=== PATIENT | male | born 1970 | race Caucasian/White ===

== ENCOUNTER 2019-12-30 10:28 | Inpatient (IN) | payer MEDICARE, MEDICAID ==
[~2019-12-30] VITALS: Ht 167.6 cm; Wt 60.3 kg
[2019-12-30 11:09] LABS: EOSINOPHILS % (AUTO) 3.7 % (1.0-6.0); HEMATOCRIT 41.3 % (41-53); HEMOGLOBIN 13.7 g/dL (13.5-17.5); LYMPHOCYTES # (AUTO) 1.9 K/uL (1.0-4.8); LYMPHOCYTES % (AUTO) 26.8 % (22.0-44.0); MEAN CORPUSCULAR HGB CONC 33.2 G/dL (31.0-37.0); MEAN CORPUSCULAR VOLUME 87 fL (80-100); MONOCYTES # (AUTO) 0.6 K/uL (0.1-1.0); NEUTROPHILS # (AUTO) 4.2 K/uL (1.8-7.7); NEUTROPHILS % (AUTO) 60.5 % (40.0-70.0); PLATELET COUNT (AUTO) 370 K/uL (150-450); RED BLOOD CELL COUNT(AUTO) 4.73 MIL/uL (4.50-5.90); RED CELL DISTRIBUTION WIDTH 14.4 % (11.5-14.5)
[2019-12-30 11:40] LABS: ANION GAP 4 mmol/L (8-16); CALCIUM, TOTAL 9.1 mg/dL (8.8-10.5); CARBON DIOXIDE 33 mmol/L (22-29); CHLORIDE 104 mmol/L (98-107); GLOMERULAR FILTR. RATE CALC > 60 mL/min (>60); GLUCOSE,RANDOM 88 mg/dL (70-110); POTASSIUM 5.4 mmol/L (3.5-5.1); SODIUM SERUM 141 mmol/L (136-145); UREA NITROGEN, BLOOD 16 mg/dL (7-18)
[2019-12-30 11:44] LABS: ALANINE AMINOTRANSFERASE 25 U/L (12-78); ALBUMIN 3.9 g/dL (3.4-5.0); ALKALINE PHOSPHATASE 91 U/L (46-116); ASPARTATE AMINOTRANSFERASE 21 U/L (15-37)
[2019-12-30 11:51] LABS: AMPHET/METH SCREEN,URINE POSITIVE (NEGATIVE); BARBITURATE SCREEN, URINE NEGATIVE (NEGATIVE); BENZODIAZEPINES SCREEN,URINE NEGATIVE (NEGATIVE); CANNABINOID SCREEN,URINE NEGATIVE (NEGATIVE); COCAINE SCREEN,URINE NEGATIVE (NEGATIVE); METHADONE SCREEN, URINE NEGATIVE (NEGATIVE); OPIATE SCREEN,URINE NEGATIVE (NEGATIVE)
[2019-12-30 11:53] LABS: PHENCYCLIDINE SCREEN,URINE NEGATIVE (NEGATIVE)
[2019-12-30] MEDS ORDERED: HALOPERIDOL 5 MG TABLET PO PRN (13:15)
[2019-12-30 15:07] VITALS: BP 107/59
[2019-12-30 16:23] VITALS: BP 150/80
[2019-12-30] MEDS ORDERED: NICOTINE 21 MG/24 HOUR PATCH TD PRN (16:30)
[2019-12-30] MEDS ORDERED: SODIUM POLYSTYRENE SULFONATE 15 GM/60 ML SUSPENSION BOTTLE PO ONE (17:30)
[2019-12-30] MEDS: LORazepam 2 MG TABLET PO PRN (17:46)
[2019-12-30] MEDS: ZOLPIDEM TARTRATE 10 MG TABLET PO PRN (21:33)
[2019-12-31 08:00] VITALS: BP 110/62
[2019-12-31 08:15] LABS: FREE T4 (FREE THYROXINE) 1.02 ng/dL (0.76-1.46); POTASSIUM 4.6 mmol/L (3.5-5.1); THYROID STIMULATING HORMONE 0.71 uIU/mL (0.36-3.74)
[2019-12-31] MEDS ORDERED: LOPERAMIDE HCL 2 MG CAPSULE PO PRN (08:15)
[2019-12-31] MEDS ORDERED: MAG HYDROX/AL HYDROX/SIMETH ES 30 ML SUSPENSION UDCUP PO PRN (08:15)
[2019-12-31] MEDS ORDERED: PETROLATUM,WHITE 28 GM JELLY TP PRN (08:15)
[2019-12-31] MEDS ORDERED: OMEPRAZOLE 20 MG CAPSULE PO PRN (08:15)
[2019-12-31] MEDS ORDERED: ALBUTEROL SULFATE HFA 90 MCG/PUFF 8 GM INHALER IH PRN (08:15)
[2019-12-31] MEDS ORDERED: ACETAMINOPHEN 325 MG TABLET PO PRN (08:15)
[2019-12-31] MEDS ORDERED: DOCUSATE SODIUM 100 MG CAPSULE PO PRN (08:15)
[2019-12-31] MEDS ORDERED: IBUPROFEN 600 MG TABLET PO PRN (08:15)
[2019-12-31] MEDS ORDERED: MAGNESIUM HYDROXIDE SUSPENSION 30 ML UDCUP PO PRN (08:15)
[2019-12-31] MEDS ORDERED: CloNIDine HCL 0.1 MG TABLET PO PRN (08:15)
[2019-12-31] MEDS ORDERED: BENZOCAINE/MENTHOL LOZENGE MM PRN (08:15)
[2019-12-31] MEDS ORDERED: ONDANSETRON HCL 4 MG TABLET PO PRN (08:15)
[2019-12-31] MEDS: ARIPiprazole 5 MG TABLET PO SCH (09:08)
[2019-12-31] MEDS: ESCITALOPRAM OXALATE 10 MG TABLET PO SCH (09:10)
[2019-12-31] MEDS: LORazepam 2 MG TABLET PO PRN ×2 (09:12→17:16)
[2019-12-31 17:27] VITALS: BP 115/72
[2020-01-01 01:35] VITALS: BP 115/69
[2020-01-01] MEDS: LORazepam 2 MG TABLET PO PRN ×2 (01:40→16:45)
[2020-01-01] MEDS: ZOLPIDEM TARTRATE 10 MG TABLET PO PRN (01:40)
[2020-01-01 08:00] VITALS: BP 112/75
[2020-01-01] MEDS: ARIPiprazole 5 MG TABLET PO SCH (08:01)
[2020-01-01] MEDS: ESCITALOPRAM OXALATE 10 MG TABLET PO SCH (08:01)
[2020-01-01 16:49] VITALS: BP 117/71
[2020-01-02 07:05] LABS: PHOSPHORUS 3.5 mg/dL (2.5-4.9)
[2020-01-02] MEDS: LORazepam 2 MG TABLET PO PRN ×2 (08:37→14:39)
[2020-01-02 08:38] VITALS: BP 109/70
[2020-01-02] MEDS: NICOTINE 21 MG/24 HOUR PATCH TD PRN (08:38)
[2020-01-02] MEDS ORDERED: ESCITALOPRAM OXALATE 10 MG TABLET PO SCH (09:00)
[2020-01-02] MEDS ORDERED: ARIPiprazole 5 MG TABLET PO SCH (09:00)
[2020-01-02 16:36] VITALS: BP 121/66
[2020-01-02] MEDS: OLANZapine 5 MG RAPDIS TABLET PO SCH (21:18)
[2020-01-03 06:10] VITALS: BP 103/64
[2020-01-03 08:00] VITALS: BP 92/61
[2020-01-03] MEDS ORDERED: FLUoxetine HCL 20 MG CAPSULE PO SCH (09:00)
[2020-01-03] MEDS: NALTREXONE HCL 50 MG TABLET PO SCH (09:13)
[2020-01-03 16:00] VITALS: BP 112/68
[2020-01-03] MEDS: LORazepam 2 MG TABLET PO PRN (16:05)
[2020-01-03] MEDS: OLANZapine 5 MG RAPDIS TABLET PO SCH (20:09)
[2020-01-03 20:35] LABS: GLUCOMETER DEV NAME(LOC) 3EX.; GLUCOSE,POINT OF CARE 231 MG/DL (70-110)
[2020-01-04 08:00] VITALS: BP 129/65
[2020-01-04] MEDS: NALTREXONE HCL 50 MG TABLET PO SCH (08:33)
[2020-01-04] MEDS: BuPROPion HCL XL 150 MG ER TABLET PO SCH (08:33)
[2020-01-04] MEDS: ATOMOXETINE HCL 40 MG CAPSULE PO SCH (08:33)
[2020-01-04] MEDS ORDERED: ATOMOXETINE HCL 25 MG CAPSULE PO SCH (09:00)
[2020-01-04 16:40] VITALS: BP 127/75
[2020-01-04] MEDS: LORazepam 2 MG TABLET PO PRN (17:44)
[2020-01-04] MEDS: OLANZapine 10 MG RAPDIS TABLET PO SCH (20:20)
[2020-01-05] MEDS: BuPROPion HCL XL 150 MG ER TABLET PO SCH (08:25)
[2020-01-05] MEDS: ATOMOXETINE HCL 40 MG CAPSULE PO SCH (08:26)
[2020-01-05] MEDS: NALTREXONE HCL 50 MG TABLET PO SCH (08:26)
[2020-01-05 08:52] VITALS: BP 102/50
[2020-01-05 09:35] VITALS: BP 117/67
[2020-01-05] MEDS: LORazepam 2 MG TABLET PO PRN ×2 (09:37→16:40)
[2020-01-05] MEDS: NICOTINE 21 MG/24 HOUR PATCH TD PRN (09:42)
[2020-01-05 16:00] VITALS: BP 109/73
[2020-01-05 16:38] VITALS: BP 111/69
[2020-01-05 17:38] VITALS: BP 119/68
[2020-01-05 18:38] VITALS: BP 119/68
[2020-01-05] MEDS: OLANZapine 10 MG RAPDIS TABLET PO SCH (20:08)
[2020-01-06 08:36] VITALS: BP 105/65
[2020-01-06 08:42] VITALS: BP 126/62
[2020-01-06] MEDS: LORazepam 2 MG TABLET PO PRN ×2 (08:44→18:54)
[2020-01-06] MEDS: NALTREXONE HCL 50 MG TABLET PO SCH (08:45)
[2020-01-06] MEDS: ATOMOXETINE HCL 40 MG CAPSULE PO SCH (08:45)
[2020-01-06] MEDS: BuPROPion HCL XL 150 MG ER TABLET PO SCH (08:45)
[2020-01-06] MEDS: OLANZapine 5 MG RAPDIS TABLET PO PRN (11:18)
[2020-01-06 16:00] VITALS: BP 108/73
[2020-01-06] MEDS: OLANZapine 10 MG RAPDIS TABLET PO SCH (20:13)
[2020-01-06] MEDS ORDERED: INSULIN LISPRO 100 UNITS/ML SQ PRN (21:00)
[2020-01-06] MEDS ORDERED: DEXTROSE 50%-WATER 25 GM/50 ML SYRINGE IVP PRN (21:00)
[2020-01-07 06:49] LABS: GLUCOMETER DEV NAME(LOC) 3E.I 2; GLUCOSE,POINT OF CARE 88 MG/DL (70-110)
[2020-01-07 07:12] LABS: HEMATOCRIT 37.2 % (41-53); HEMOGLOBIN 12.3 g/dL (13.5-17.5); MEAN CORPUSCULAR HEMOGLOBIN 29.1 pg (26.0-34.0); MEAN CORPUSCULAR VOLUME 88 fL (80-100); PLATELET COUNT (AUTO) 365 K/uL (150-450); RED BLOOD CELL COUNT(AUTO) 4.23 MIL/uL (4.50-5.90); RED CELL DISTRIBUTION WIDTH 14.8 % (11.5-14.5)
[2020-01-07 07:30] LABS: ANION GAP 3 mmol/L (8-16); CARBON DIOXIDE 35 mmol/L (22-29); CHLORIDE 105 mmol/L (98-107); CREATININE 0.92 mg/dL (0.60-1.30); GLOMERULAR FILTR. RATE CALC > 60 mL/min (>60); GLUCOSE,RANDOM 87 mg/dL (70-110); PHOSPHORUS 4.6 mg/dL (2.5-4.9); POTASSIUM 5.4 mmol/L (3.5-5.1); SODIUM SERUM 143 mmol/L (136-145); UREA NITROGEN, BLOOD 24 mg/dL (7-18)
[2020-01-07 07:40] LABS: HEMOGLOBIN A1C 5.5 % (3.8-5.6)
[2020-01-07] MEDS: NALTREXONE HCL 50 MG TABLET PO SCH (08:57)
[2020-01-07] MEDS: BuPROPion HCL XL 150 MG ER TABLET PO SCH (08:57)
[2020-01-07] MEDS ORDERED: ATOMOXETINE HCL 40 MG CAPSULE PO SCH (09:00)
[2020-01-07] MEDS ORDERED: ATOMOXETINE HCL 10 MG CAPSULE PO SCH (09:00)
[2020-01-07 09:23] VITALS: BP 116/79
[2020-01-07] MEDS: LORazepam 2 MG TABLET PO PRN ×2 (09:44→13:56)
[2020-01-07 11:25] LABS: GLUCOMETER DEV NAME(LOC) 3EX.; GLUCOSE,POINT OF CARE 99 MG/DL (70-110)
[2020-01-07 11:55] LABS: BAND NEUTROPHILS % (MANUAL) 2 % (0-5); BASOPHILS % (MANUAL) 1 % (0-2); EOSINOPHILS % (MANUAL) 6 % (1-6); LYMPHOCYTES % (MANUAL) 36 % (22-44); MONOCYTES % (MANUAL) 4 % (2-9); SEGMENTED NEUTROPHILS % 51 % (40-70)
[2020-01-07] MEDS: OLANZapine 5 MG RAPDIS TABLET PO PRN (13:56)
[2020-01-07 16:00] VITALS: BP 112/74
[2020-01-07 18:20] LABS: GLUCOMETER DEV NAME(LOC) 3EX.; GLUCOSE,POINT OF CARE 113 MG/DL (70-110)
[2020-01-07] MEDS: ZOLPIDEM TARTRATE 10 MG TABLET PO PRN (20:21)
[2020-01-07] MEDS: OLANZapine 10 MG RAPDIS TABLET PO SCH (20:22)
[2020-01-07 20:52] LABS: GLUCOMETER DEV NAME(LOC) 3E.I 2; GLUCOSE,POINT OF CARE 125 MG/DL (70-110)
[2020-01-07] MEDS ORDERED: BUPR-47 PO (20:58)
[2020-01-07] MEDS ORDERED: ATOM40CA9 PO (20:58)
[2020-01-07] MEDS ORDERED: NALT50TA PO (20:58)
[2020-01-07] MEDS ORDERED: OLAN10TA22 PO (20:58)
[2020-01-08 05:45] LABS: GLUCOMETER DEV NAME(LOC) 3E.I 2; GLUCOSE,POINT OF CARE 89 MG/DL (70-110)
[2020-01-08 06:50] VITALS: BP 120/72
[2020-01-08] MEDS: LORazepam 2 MG TABLET PO PRN (06:53)
[2020-01-08 08:00] VITALS: BP 101/57
[2020-01-08] MEDS: BuPROPion HCL XL 150 MG ER TABLET PO SCH (08:40)
[2020-01-08] MEDS: OLANZapine 5 MG RAPDIS TABLET PO PRN (08:40)
[2020-01-08] MEDS: NALTREXONE HCL 50 MG TABLET PO SCH (08:41)
[2020-01-08] MEDS ORDERED: ATOMOXETINE HCL 40 MG CAPSULE PO SCH (09:00)
[2020-01-08] MEDS ORDERED: SODIUM POLYSTYRENE SULFONATE 15 GM/60 ML SUSPENSION BOTTLE PO ONE (10:15)
[2020-01-09] MEDS ORDERED: MULTIVITAMINS WITH IRON TABLET PO SCH (08:00)
== END 2020-01-08 10:50 | disposition home or self-care (01) | DRG 885 ==
LOC: EMS 10:30 → 3EX 13:10
PROVIDERS: ADMIT Psychiatry & Neurology Psychiatry; ATTEND Psychiatry & Neurology Psychiatry
DX: F33.2 Major depressive disorder, recurrent severe without psychotic features (principal); R45.851 Suicidal ideations; F41.9 Anxiety disorder, unspecified; K59.00 Constipation, unspecified; F17.200 Nicotine dependence, unspecified, uncomplicated; I10 Essential (primary) hypertension; E87.5 Hyperkalemia; F15.10 Other stimulant abuse, uncomplicated; Z71.6 Tobacco abuse counseling
CPT/HCPCS: 83036; 83735; 84100; 84132; 84439; 84443; 85007; 87081; G0378; G0480